=== PATIENT | male | born 1965 | race Two or more races ===

== ENCOUNTER 2020-09-22 18:22 | Emergency (ER) | payer BC ==
[~2020-09-22] VITALS: Ht 165.1 cm; Wt 149.7 kg
[2020-09-22 18:28] VITALS: BP_SYST 159
[2020-09-22] MEDS ORDERED: KETOROLAC TROMETHAMINE 60 MG/2 ML VIAL IM ONE (18:45)
[2020-09-22 19:05] LABS: BASOPHILS # (AUTO) 0.1 K/uL (0.0-0.2); BASOPHILS % (AUTO) 0.5 % (0.0-2.0); EOSINOPHILS # (AUTO) 0.1 K/uL (0.0-0.4); EOSINOPHILS % (AUTO) 0.6 % (0.0-4.0); HEMATOCRIT 45.1 % (36-54); HEMOGLOBIN 15.3 g/dL (14.0-18.0); LYMPHOCYTES # (AUTO) 1.2 K/uL (1.0-5.5); LYMPHOCYTES % (AUTO) 11.4 % (20.5-51.5); MEAN CORPUSCULAR HEMOGLOBIN 28 pg (27-31); MEAN CORPUSCULAR HGB CONC 34 % (32-36); MEAN CORPUSCULAR VOLUME 81 fL (79.0-98.0); MONOCYTES # (AUTO) 0.8 K/uL (0.0-1.0); MONOCYTES % (AUTO) 7.8 % (1.7-9.3); NEUTROPHILS # (AUTO) 8.6 K/uL (1.8-7.7); NEUTROPHILS % (AUTO) 79.7 % (40.0-70.0); PLATELET COUNT (AUTO) 179 K/uL (130-430); RED BLOOD CELL COUNT(AUTO) 5.54 MIL/uL (4.2-6.2); RED CELL DISTRIBUTION WIDTH 14.4 % (9.0-15.0); WHITE BLOOD COUNT (AUTO) 10.8 K/uL (4.8-10.8)
[2020-09-22 19:18] LABS: PROTHROMBIN TIME 9.8 SECS (9.5-12.5)
[2020-09-22 19:20] LABS: C-REACTIVE PROTEIN QUANT 5.6 mg/dL (0-0.5)
[2020-09-22 19:26] LABS: CALCIUM 8.4 mg/dL (8.4-11.0); CREATININE 0.82 mg/dL (0.55-1.30); POTASSIUM 3.8 mmol/L (3.5-5.1)
[2020-09-22 19:27] LABS: ALBUMIN 3.7 g/dL (3.4-4.8)
[2020-09-22 19:41] LABS: URIC ACID 5.4 mg/dL (2.4-7.0)
[2020-09-22 19:47] LABS: ERYTHROCYTE SEDIMENTATION RATE 22 MM/HR (0-15)
[2020-09-22] MEDS ORDERED: HYDR-3917 PO (19:56)
[2020-09-22] MEDS ORDERED: IBUP-1971 PO (19:56)
[2020-09-22 20:57] VITALS: BP_SYST 159
== END 2020-09-22 20:56 | disposition home or self-care (01) ==
LOC: SED 18:22
DX: M75.21 Bicipital tendinitis, right shoulder (principal)
CPT/HCPCS: 36415; 73030; 80053; 84550; 85025; 85610; 85651; 85730; 86140; 96372; 99284; J1885